=== PATIENT | male | born 1990 | race African-American/Black ===

== ENCOUNTER 2018-09-23 01:42 | Emergency (ER) | payer OTHER ==
[~2018-09-23] VITALS: Ht 182.9 cm; Wt 72.6 kg
[2018-09-23 03:25] VITALS: BP 151/85
== END 2018-09-23 03:27 | disposition home or self-care (01) ==
LOC: ER 01:42
DX: F15.129 Other stimulant abuse with intoxication, unspecified (principal); F17.210 Nicotine dependence, cigarettes, uncomplicated